=== PATIENT | male | born 2000 | race American Indian/Alaskan Native ===

== ENCOUNTER 2022-04-18 09:21 | Emergency (ER) | payer SELFPAY ==
[2022-04-18 09:30] VITALS: BP 132/78
[2022-04-18] MEDS ORDERED: cloNIDine 0.1 MG TAB PO ONE (11:12)
[2022-04-18] MEDS ORDERED: METHADONE 10 MG TAB PO ONE ×2 (11:12→11:30)
[2022-04-18] MEDS ORDERED: ONDANSETRON 4 MG ODT TAB PO ONE (11:12)
--- NOTE | 2022-04-18 11:16 | Emergency Department Report ---
ED General Adult HPI - General Chief complaint: Nausea/Vomiting/Diarrhea Stated complaint: VOMITING Time Seen by Provider: 04/18/22 11:05 Source: patient, family, RN notes reviewed Mode of arrival: Ambulatory Limitations: No Limitations - History of Present Illness Initial comments: The patient was evaluated in the emergency department for symptoms described in the history of present illness. He/she was evaluated in the context of the global COVID-19 pandemic, which necessitated consideration that the patient might be at risk for infection with the virus that causes COVID-19. Institutional protocols and algorithms that pertain to the evaluation of patients at risk for COVID-19 are in a state of rapid change based on information released by regulatory bodies including the CDC and federal and state organizations. These policies and algorithms were followed during the patient's care in the emergency department. Please note that these policies, procedures and recommendations changed on a rapid basis. This patient is a pleasant and cooperative 21-year-old gentleman who is on daily methadone maintenance therapy, who presents to the ER today with a request for methadone medication, as he is driving back to [place] today. He reports that he is maintained on methadone 120 mg daily, and he last was medicated yesterday. He is driving back to [place] today. He feels mildly nauseous. He has no physical pain. He denies homicidality and suicidality. He denies additional complaints. He endorses readiness for discharge. -: Gradual Severity scale (0 -10): 8 Improves with: medication Worsens with: other (Not having medication) - Related Data Allergies Allergy/AdvReac Type Severity Reaction Status Date / Time blueberry Allergy Rash Verified 04/18/22 11:53 ED Review of Systems ROS: Stated complaint: VOMITING Other details as noted in HPI Comment: All other systems reviewed and negative Gastrointestinal: nausea Musculoskeletal: other (Cramping) Psychiatric: as per HPI. denies: anxiety, depression, auditory hallucinations, visual hallucinations, homicidal thoughts, suicidal thoughts ED Past Medical Hx - Past Medical History Previous Medical History?: Yes Additional medical history: Methadone Clinic - Surgical History Past Surgical History?: Yes ED Physical Exam - General Limitations: No Limitations General appearance: alert, in no apparent distress - Head Head exam: Present: atraumatic, normocephalic - Eye Eye exam: Present: normal appearance, EOMI. Absent: nystagmus - ENT ENT exam: Present: normal exam, normal orophraynx, mucous membranes moist, normal external ear exam - Neck Neck exam: Present: normal inspection, full ROM. Absent: tenderness, mening ismus - Respiratory Respiratory exam: Present: normal lung sounds bilaterally. Absent: respiratory distress, wheezes, rales, rhonchi, stridor, decreased breath sounds - Cardiovascular Cardiovascular Exam: Present: regular rate, normal rhythm, normal heart sounds. Absent: bradycardia, tachycardia, irregular rhythm, systolic murmur, diastolic murmur, rubs, gallop - GI/Abdominal GI/Abdominal exam: Present: soft. Absent: distended, tenderness, guarding, rebound, rigid, pulsatile mass - Rectal Rectal exam: Present: deferred - Extremities Exam Extremities exam: Present: normal inspection, full ROM, other (2+ pulses noted in the bilateral upper and lower extremities. There is no palpable cord. negative Homans sign. Muscular compartments are soft. The pelvis is stable.). Absent: pedal edema, calf tenderness - Back Exam Back exam: Present: normal inspection, full ROM. Absent: tenderness, CVA tenderness (R), CVA tenderness (L), paraspinal tenderness, vertebral tenderness - Neurological Exam Neurological exam: Present: alert, oriented X3, normal gait, other (No facial droop. Tongue midline. Extraocular movements intact bilaterally. Facial sensation intact to light touch in V1, V2, V3 distribution bilaterally. 5 and a 5 strength in 4 extremities. Sensation intact to light touch in 4 extremities.). Absent: motor sensory deficit - Psychiatric Psychiatric exam: Present: normal affect, normal mood. Absent: homicidal ideation, suicidal ideation - Skin Skin exam: Present: warm, dry, intact, normal color. Absent: rash ED Course Vital Signs 04/18/22 09:26 Temperature 97.6 F Pulse Rate 71 Respiratory 20 Rate Blood Pressure 132/78 [Right] O2 Sat by Pulse 99 Oximetry - Pulse Oximetry Interpretation Digit-Finger Initial Pulse Oximetry Readin O2 Sat by Pulse Oximetry: 99 Actions Taken: none ED Medical Decision Making - Lab Data Vital Signs 04/18/22 09:26 Temperature 97.6 F Pulse Rate 71 Respiratory 20 Rate Blood Pressure 132/78 [Right] O2 Sat by Pulse 99 Oximetry - Medical Decision Making Differential diagnosis, including but not limited to: On methadone maintenance therapy, mild narcotic withdrawal Assessment and plan: 21-year-old gentleman, who is afebrile, with reassuring vital signs, who is clinically sober, with a GCS of 15, who does not meet criteria for 1013 hold or involuntary confinement, presenting essentially for maintenance methadone dose. He is not actively vomiting. He is of sound mind and exhibits decision-making capacity. He was able to pull up his medical records from away, and we were able to confirm his methadone dose. He was able to tolerate oral methadone without any significant difficulty and left the emergency room prior to receiving his discharge paperwork. However, we were planning on discharging this patient anyhow. He reported that he is reliable to follow-up with his outpatient methadone therapy clinic once he gets back to [place]. Critical care attestation.: If time is entered above; I have spent that time in minutes in the direct care of this critically ill patient, excluding procedure time. ED Disposition Clinical Impression: Encounter for methadone maintenance therapy Disposition: HOME / SELF CARE / HOMELESS Is pt being admited?: No Does the pt Need Aspirin: No Condition: Good Additional Instructions: Please continue current outpatient medications. Please follow-up with your outpatient primary care doctor or therapist within the next week. May take [id number] no tablets as needed for nausea and vomiting. Please return to the emergency room right away with new pain, worsened pain, migration of pain, projectile vomiting, change in mental status, confusion, inability tolerate liquid feeds, new, worsened or different symptoms not present on the initial emergency room evaluation
== END 2022-04-18 12:00 | disposition home or self-care (01) ==
LOC: ED 09:21
DX: R11.0 Nausea (principal); Z76.0 Encounter for issue of repeat prescription
CPT/HCPCS: 99281; J3490; Q0162